=== PATIENT | male | born 1970 | race Caucasian/White ===

== ENCOUNTER → 2018-05-28 17:00 | Outpatient (CLI) | payer OTHER, SELFPAY ==
--- NOTE | 2018-05-28 17:04 | RAD_ITS ---
STUDY: X-RAY - THORACIC SPINE REASON FOR EXAM: Male, 48 years old. Back pain TECHNIQUE: 3 view(s) of the thoracic spine were obtained. COMPARISON: None. FINDINGS: Normal kyphosis of the thoracic spine. There is no substantial scoliosis. Normal thoracic vertebrae and minimal spondylosis of endplates at T9-T10 level. Normal disc space heights. The soft tissue structures are unremarkable. RAD/Thoracic Spine 3 Views IMPRESSION: Minimal degenerative changes. No compression injury detected. Electronically Signed: Zeina Oliveros MD at 6:44 EDT , Service support ,
== END ==
PROVIDERS: Visit Provider Nurse Practitioner Family
DX: M54.6 Pain in thoracic spine (principal)
CPT/HCPCS: 72072

== ENCOUNTER 2019-03-21 17:59 | Emergency (ER) | payer OTHER, SELFPAY ==
[2019-03-21 17:59] VITALS: BP 150/72; PULSE 97; RESP 16; TEMP 37.2; O2SAT 95; BMI 30.8
== END 2019-03-21 19:55 ==
LOC: ED 20:28
PROVIDERS: Emergency Provider Emergency Medicine
DX: R10.30 Lower abdominal pain, unspecified (principal)